=== PATIENT | female | born 1970 | race Caucasian/White ===

== ENCOUNTER 2025-09-02 16:46 | Emergency (ER) | payer BC ==
[2025-09-02] MEDS ORDERED: HYDROmorphone 0.5 MG/0.5 ML SYRINGE ONE ×3 (17:19→18:31)
== END 2025-09-02 19:25 | disposition short-term general hospital (02) ==
LOC: MADERS 16:46
DX: T84.021A Dislocation of internal left hip prosthesis, initial encounter (principal); I10 Essential (primary) hypertension; K21.9 Gastro-esophageal reflux disease without esophagitis; J45.909 Unspecified asthma, uncomplicated; I65.8 Occlusion and stenosis of other precerebral arteries; M35.00 Sjogren syndrome, unspecified; F17.210 Nicotine dependence, cigarettes, uncomplicated; Z79.899 Other long term (current) drug therapy; Z79.82 Long term (current) use of aspirin; Z79.51 Long term (current) use of inhaled steroids; X50.1XXA Overexertion from prolonged static or awkward postures, initial encounter
CPT/HCPCS: 96374; 96376; J1171